=== PATIENT | female | born 1990 | race African-American/Black ===

== ENCOUNTER 2024-04-06 20:28 | Emergency (ER) | payer BC, SELFPAY ==
--- NOTE | ~2024-04-06 | US_ITS ---
Pelvic ultrasound. Clinical History: First trimester , abdominal pelvic pain Technique: Realtime transabdominal and transvaginal scanning of the pelvis was performed. Color flow Doppler and Doppler spectral analysis were performed. Findings: The uterus is anteverted, and contains an intrauterine gestational sac. [place]-rump length o f 8 mm corresponds to an estimated gestational age of 6 weeks 5 days. heart rate is 142 bpm. Sm all subchorionic hemorrhage present. The right ovary measures 2.2 x 1.8 x 1.8 cm. No significant right ovarian or adnexal mass is seen. The left ovary measures 2.7 x 1.9 x 2.0 cm. No significant left ovarian or adnexal mass is seen. There is no evidence of free fluid in the cul de sac. Impression: Live intrauterine gestation, with estimated gestational age of 6 weeks 5 days. heart rate is 14 2 bpm. Small subchorionic hemorrhage. Reviewed, dictated and finalized at [facility]. Impression: Live intrauterine gestation, with estimated gestational age of 6 weeks 5 days. heart rate is 142 bpm. Small subchorionic hemorrhage.
[2024-04-06 20:54] VITALS: PULSE 75; RESP 20; TEMP 37; O2SAT 100
[2024-04-07 00:20] LABS: BEDSIDEPREGUCG Positive
[2024-04-07] MEDS: SODIUM CHLORIDE 0.9% IV 1,000 ML 999 ML IV CONT (00:23)
[2024-04-07] MEDS: diphenhydrAMINE HCl INJ 50 MG/ML VIAL IV PUSH (00:23)
[2024-04-07] MEDS: METOCLOPRAMIDE HCL INJ 10 MG/2 ML VIAL IV PUSH (00:24)
[2024-04-07 00:28] LABS: Basophils Percent Auto 0.2 % (0.2-1.2); Eosinophils Percent Auto 0.3 % (0-4.4); Hematocrit 33.6 % (37.0-47.0); Hemoglobin 11.9 g/dL (12.0-15.0); Immature Granulocyte Absolute 0.04 K/mm3 (0.00-0.031); Immature Granulocyte Percent A 0.3 % (0-0.5); Lymphocytes Absolute Auto 4.01 K/mm3 (0.9-3.2); Lymphocytes Percent Auto 33.2 % (18.3-44.2); Mean Corpuscular HGB Conc 35.4 g/dl (32-36); Mean Corpuscular Hemoglobin 33.7 pg (26-34); Mean Corpuscular Volume 95.2 fl (80-100); Mean Platelet Volume 8.9 fl (7.4-10.4); Monocytes Absolute Auto 0.9 K/mm3 (0.1-0.6); Monocytes Percent Auto 7.7 % (2.6-8.5); Neutrophils Percent Auto 58.3 % (45.5-73.1); Platelet Count Result 407 k/mm3 (150-375); Red Blood Count 3.53 M/mm3 (4.2-5.4); Red Cell Distribution Width 11.4 % (11.5-14.5); White Blood Count 12.1 K/mm3 (4.5-10.0)
[2024-04-07 00:36] LABS: Alanine Aminotransferase 27 U/L (6-35); Albumin Level 4.7 g/dL (3.5-5.1); Alkaline Phosphatase 81 U/L (38-126); Anion Gap 11 mmol/L (4-12); Aspartate Amino Transferase 28 U/L (14-36); Bilirubin,Total 0.5 mg/dL (0.2-1.3); Blood Urea Nitrogen 6 mg/dL (7-17); Calcium 8.9 mg/dL (8.4-10.2); Carbon Dioxide 24 mmol/L (22-30); Chloride 96 mmol/L (98-107); Estimated CRCL calculation 97 ml/min; Estimated Glomerular Filt Rate > 60; Glucose 98 mg/dL (65-110); Lipase 111 U/L (23-300); Magnesium 2.2 mg/dL (1.6-2.3); Potassium 3.4 mmol/L (3.4-5.0); Sodium 131 mmol/L (137-145)
[2024-04-07 00:37] LABS: Add Urine Microscopic? YES; Appearance Urine Cloudy (Clear); Bacteria Urine Rare /hpf; Bilirubin Urine Negative (Negative); Blood Urine Negative (Negative); Color Urine Yellow (Yellow); Glucose Urine UA Negative (Negative); Ketones Urine 2+ mg/dL (Negative); Leukocyte Esterase Ur Negative LEU/UL (Negative); Mucus Urine Present /lpf; Need Manual Microscopic Reviewed; Nitrate Urine Negative (Negative); Non Pathogenic Casts 0-2; Protein Urine Trace mg/dL (Negative); RBC Urine 0-2 /hpf (0-2); Specific Grav Ur 1.023 (1.001-1.035); Squamous Epithelial Cell Urine Moderate /hpf (Few); WBC Urine 0-5 /hpf (0-3)
--- NOTE | 2024-04-07 01:46 | ED.GENADULT ---
HPI - General Adult General Chief complaint: Dizziness Stated complaint: headache Time Seen by Provider: 04/06/24 23:56 History of Present Illness HPI narrative: Patient is a 34-year-old female who presents emergency department with chief complaint of headache nausea and reports he has not really been able to eat much for the last 3 days patient reports that her last menstrual period was in March and reports that she has not taken a home test. The patient does report she has been before in the past denies vaginal bleeding today and reports that she has discomfort in her low abdomen. Related Data Allergies Allergy/AdvReac Type Severity Reaction Status Date / Time No Known Allergies Allergy Verified 04/06/24 21:01 Review of Systems Review of Systems: A 10 system review of systems was completed on the patient and is negative except for what is stated in the HPI. Nursing and ancillary documentation was reviewed. Exam Narrative: GENERAL: Well-appearing, well-nourished, and in no acute distress. HEAD: Normocephalic, atraumatic. EYES: PERRLA and EOMI. ENT: Nares clear, no rhinorrhea or epistaxis. Mucous membranes moist. NECK: Supple. CHEST: Clear to auscultation. No respiratory distress. HEART: Regular rate and rhythm. No murmur heard. Normal peripheral pulses. ABDOMEN: Soft, nontender, nondistended, normal active bowel sounds. EXTREMITIES: Normal range of motion. No edema. SKIN: Warm, dry, no rash. NEURO: No focal deficits. Alert and oriented x3. PSYCH: Normal mood and affect. Course Vital Signs Vital signs: Vital Signs Temperature 37.0 C 04/06/24 20:54 Pulse Rate 75 04/06/24 20:54 Respiratory Rate 20 04/06/24 20:54 Pulse Oximetry 100 04/06/24 20:54 Oxygen Delivery Room Air 04/06/24 20:54 Temperature 36.7 C 04/07/24 02:57 Pulse Rate 74 04/07/24 02:57 Respiratory Rate 15 04/07/24 02:57 Blood Pressure 118/86 04/07/24 02:57 Pulse Oximetry 100 04/07/24 02:57 Oxygen Delivery Room Air 04/06/24 20:54 Medical Decision Making [facility] Narrative Medical decision making narrative: Differential diagnosis includes migraine headache, , hyperemesis gravidarum, dehydration, electrolyte abnormality, ectopic Laboratory studies were obtained on the patient showed [place] [address] patient received IV fluids Reglan and Benadryl and is feeling much better with her headache and nausea. Pelvic ultrasound was ordered on the patient to rule out for ectopic Ultrasound showed intrauterine 6 weeks 6 days Patient is feeling much better this time unable tolerate p.o. intake Vital Signs Vital Signs: Vital Signs Temperature 37.0 C 04/06/24 20:54 Pulse Rate 75 04/06/24 20:54 Respiratory Rate 20 04/06/24 20:54 Pulse Oximetry 100 04/06/24 20:54 Oxygen Delivery Room Air 04/06/24 20:54 Temperature 36.7 C 04/07/24 02:57 Pulse Rate 74 04/07/24 02:57 Respiratory Rate 15 04/07/24 02:57 Blood Pressure 118/86 04/07/24 02:57 Pulse Oximetry 100 04/07/24 02:57 Oxygen Delivery Room Air 04/06/24 20:54 Lab Data 04/07/24 00:21 04/07/24 00:21 Labs: Lab Results 04/07/24 04/07/24 04/07/24 Range/Units 00:14 00:16 00:21 WBC 12.1 H (4.5-10.0) K/mm3 RBC 3.53 L (4.2-5.4) M/mm3 Hgb 11.9 L (12.0-15.0) g/dL Hct 33.6 L (37.0-47.0) % MCV 95.2 (80-100) fl MCH 33.7 (26-34) pg MCHC 35.4 (32-36) g/dl RDW 11.4 L (11.5-14.5) % Plt Count 407 H (150-375) k/mm3 MPV 8.9 (7.4-10.4) fl Immature Gran % (Auto) 0.3 (0-0.5) % Neut % (Auto) 58.3 (45.5-73.1) % Lymph % (Auto) 33.2 (18.3-44.2) % [place] % (Auto) 7.7 (2.6-8.5) % Eos % (Auto) 0.3 (0-4.4) % Baso % (Auto) 0.2 (0.2-1.2) % Lymph # (Auto) 4.01 H (0.9-3.2) K/mm3 Imperial # (Auto) 0.9 H (0.1-0.6) K/mm3 Eos # (Auto)
[2024-04-07 02:57] VITALS: BP 118/86; PULSE 74; RESP 15; TEMP 36.7; O2SAT 100
[2024-04-07 05:37] VITALS: BP 124/78; PULSE 77; RESP 15; O2SAT 100
== END 2024-04-07 05:37 | disposition home or self-care (01) ==
PROVIDERS: Emergency Provider Emergency Medicine
DX: O21.9 Vomiting of pregnancy, unspecified (principal); O26.891 Other specified pregnancy related conditions, first trimester; R10.9 Unspecified abdominal pain; Z3A.01 Less than 8 weeks gestation of pregnancy
CPT/HCPCS: 36415; 76817; 80053; 81001; 81025; 83690; 83735; 84702; 85025; 96361; 96374; 96375; 99284; J1200; J2765; J7030